=== PATIENT | male | born 1955 | race African-American/Black ===

== ENCOUNTER 2017-05-07 14:35 | Observation (INO) | payer SELFPAY ==
[2017-05-07 14:41] VITALS: BMI 23.7
[2017-05-07] MEDS ORDERED: ASPIRIN 325 MG ENTERIC COATED TABLET (FP) PO ONE (15:00)
[2017-05-07] MEDS ORDERED: ASPIRIN 325 MG TABLET ONE (15:16)
[2017-05-07 15:19] LABS: BASOPHIL 1.4 % (0-2.0); EOSINOPHIL 2.7 % (0-4.5); MCH 30.8 pg (25.7-33.7); MCHC 32.7 g/dl (32.0-35.9); MEAN PLT VOLUME 8.5 fl (7.5-11.1); NEUTROPHILS 46.8 % (42.8-82.8); PLATELET COUNT 212 K/MM3 (134-434); RDW 12.9 % (11.9-15.9); WHITE BLOOD COUNT 5.7 K/mm3 (4.0-10.0)
[2017-05-07 15:22] LABS: URINE APPEARANCE CLEAR; URINE BILIRUBIN NEGATIVE (NEGATIVE); URINE BLOOD 1+ (NEGATIVE); URINE COLOR LTYELLOW; URINE GLUCOSE (UA) NEGATIVE (NEGATIVE); URINE KETONE NEGATIVE (NEGATIVE); URINE LEUK ESTERASE NEGATIVE (NEGATIVE); URINE NITRITE NEGATIVE (NEGATIVE); URINE PROTEIN NEGATIVE (NEGATIVE); URINE UROBILINOGEN NEGATIVE mg/dL (0.2-1.0)
--- NOTE | 2017-05-07 15:30 | PDOC ---
History of Present Illness - General Chief Complaint: Chest Pain Stated Complaint: CHEST PAIN Time Seen by Provider: 05/07/17 14:46 History Source: Patient - History of Present Illness Presenting Symptoms: Chest Pain Timing/Duration: reports: constant, changing over time Chest Pain Radiation: reports: back Prior Chest Pain/Cardiac Workup: reports: No prior cardiac workup Past History - Past Medical History Allergies/Adverse Reactions: Allergies Allergy/AdvReac Type Severity Reaction Status Date / Time No Known Allergies Allergy Verified 05/07/17 14:37 Home Medications: Ambulatory Orders NK [No Known Home Medication] 05/07/17 Other medical history: DENIES. - Psycho/Social/Smoking Cessation Hx Suicidal Ideation: No Smoking History: Never smoked Have you smoked in the past 12 months: No Information on smoking cessation initiated: No Review of Systems - Review of Systems Constitutional: No: Chills, Fever Respiratory: No: Cough, Shortness of Breath Cardiac (ROS): Yes: Chest Pain. No: Lightheadedness, Palpitations, Syncope ABD/GI: No: Nausea, Vomiting *Physical Exam - Vital Signs Last Vital Signs Temp Pulse Resp BP Pulse Ox 97.7 F 58 L 16 133/71 98 05/07/17 14:37 05/07/17 14:37 05/07/17 14:37 05/07/17 14:37 05/07/17 14:37 - Physical Exam General Appearance: Yes: Appropriately Dressed. No: Apparent Distress HEENT: positive: Normal Voice Neck: positive: Supple Respiratory/Chest: positive: Lungs Clear, Normal Breath Sounds. negative: Respiratory Distress Cardiovascular: positive: Regular Rate, S1, S2 Gastrointestinal/Abdominal: positive: Soft. negative: Tender Extremity: positive: Normal Inspection Integumentary: positive: Dry, Warm Neurologic: positive: Fully Oriented, Alert, Normal Mood/Affect Heart Score/ECG Review - ECG Intrepretation Comment:: 05/07/17 16:03 Twelve-lead EKG was performed and reviewed by me. There is normal sinus rhythm with a normal rate. The axis is normal. The intervals are normal. There are no ST or T wave abnormalities. Impression: Normal twelve-lead EKG ED Treatment Course - LABORATORY CBC & Chemistry Diagram: 05/07/17 15:07 05/07/17 15:07 - ADDITIONAL ORDERS Additional order review: Laboratory Results 05/07/17 05/07/17 15:07 14:54 Sodium 140 Potassium 4.8 Chloride 105 Carbon Dioxide 29 Anion Gap 6 L BUN 16 Creatinine 1.1 Creat Clearance w eGFR > 60 Random Glucose 123 H Calcium 8.7 Total Bilirubin 0.3 AST 39 H ALT 22 Alkaline Phosphatase 79 Creatine Kinase 276 Troponin I < 0.02 Total Protein 6.9 Albumin 3.3 L Urine Color Ltyellow Urine Appearance Clear Urine pH 5.0 Urine Protein Negative Urine Glucose (UA) Negative Urine Ketones Negative Urine Blood 1+ H Urine Nitrite Negative Urine Bilirubin Negative Urine Urobilinogen Negative Ur Leukocyte Esterase Negative Urine RBC 1 Urine WBC 1 Urine Mucus Rare 05/07/17 15:07 RBC 4.51 MCV 94.0 MCHC 32.7 RDW 12.9 MPV 8.5 Neutrophils % 46.8 Lymphocytes % 40.6 H Monocytes % 8.5 Eosinophils % 2.7 Basophils % 1.4 - RADIOLOGY Radiology Studies Ordered: Category Date Time Status CHEST X-RAY PORTABLE* [RAD] Stat Radiology 05/07/17 14:51 Completed - Medications Given in the ED: ED Medications Discontinued Medications Generic Name Dose Route Start Last Admin Trade Name Vaishnavi PRN Reason Stop Dose Admin Aspirin 325 mg 05/07/17 15:00 05/07/17 15:11 Ecotrin - PO 05/07/17 15:01 325 mg ONCE ONE Administration Medical Decision Making - Medical Decision Making 05/07/17 15:00 61 yo M, denies any pmhx but states he has not seen a doctor in many years, non- smoker, p/w chest pain. Pt c/o L sided CP radiating to left upper back this am, unable to describe pain, with no exacerbating or alleviating factors. No shortness of breath, diaphoresis, nausea, vomiting, palpitations, leg pain or swelling. No history of similar pain. No obvious risk factors for DVT or PE. See exam CP Not great story for ACS No RFs for DVT/PE Unlikely dissection -asa -ekg -cxr -labs -will m/l admit for am stress given no cardiac w/u in past 05/07/17 15:31 05/07/17 16:03 05/07/17 16:20 EKG/CXR/labs unremarkable. Will admit to tele obs for am stress as d/w hospitalist *DC/Admit/Observation/Transfer Diagnosis at time of Disposition: Chest pain Qualifiers: Chest pain type: unspecified Qualified Code(s): R07.9 - Chest pain, unspecified - Discharge Dispostion Condition at time of disposition: Fair Admit: Yes Decision to Admit order Date/Time: Decision to Admit Order Category Date Time Status Decision to Admit to Hospital Routine Admission 05/07/17 16:20 Ordered
[2017-05-07 15:41] LABS: ALBUMIN 3.3 g/dl (3.4-5.0); ANION GAP 6 (8-16); BILIRUBIN,TOTAL 0.3 mg/dL (0.2-1.0); CALCIUM 8.7 mg/dL (8.5-10.1); CO2 29 mmol/L (21-32); CREATININE 1.1 mg/dL (0.7-1.3); GLUCOSE,RANDOM 123 mg/dL (74-106); SGPT/ALT 22 U/L (12-78); TOT PROT 6.9 g/dl (6.4-8.2)
[2017-05-07 15:44] LABS: ALK PHOS 79 U/L (45-117); TROPONIN I < 0.02 ng/ml (0.00-0.05)
[2017-05-07 15:45] LABS: SGOT/AST 39 U/L (15-37)
[2017-05-07 15:46] LABS: CPK 276 IU/L (39-308)
[2017-05-07 15:58] LABS: URINE MUCUS RARE; URINE RBC 1 /hpf (0-3); URINE WBC 1 /hpf (3-5)
--- NOTE | 2017-05-07 16:02 | EKG ---
Test Reason : Blood Pressure : / mmHG Vent. Rate : 060 BPM Atrial Rate : 060 BPM P-R Int : 186 ms QRS Dur : 088 ms QT Int : 406 ms P-R-T Axes : 055 031 043 degrees QTc Int : 406 ms NORMAL SINUS RHYTHM EARLY REPOLARIZATION PATTERN NO PREVIOUS ECGS AVAILABLE CLINICAL CORRELATION IS RECOMMENDED Confirmed by LAWANDA VIDAL MD ([id number] on 05/07/2017 4:02:29 PM Referred By: Confirmed By:LAWANDA VIDAL MD
--- NOTE | 2017-05-07 17:56 | PN ---
Teaching Attending Note Name of Resident: Azam Dave ATTENDING PHYSICIAN STATEMENT I saw and evaluated the patient. I reviewed the resident's note and discussed the case with the resident. I agree with the resident's findings and plan as documented. SUBJECTIVE:61yo M c/o back pain that started suddenly at 5am. pt was already awake and it did not wake him up from sleep. states it was a sharp pain that over the next few hours radiated to the chest. he continues to have the CP but is not as severe as when the pain first started. no other assoc symptoms. no symptoms in the past. no CP or SOB on exertion. no trauma, denies lifting anything heavy. drinks a bottle of wine a week vs per day (kept changing story) , does not smoke. father of heart disease in his 70's. pt has not seen a physician since 2012 because he does not think doctors are necessary. he has no problems therefore no indication for routine check ups OBJECTIVE: Last Vital Signs Temp Pulse Resp BP Pulse Ox 98.0 F 51 L 16 136/73 99 05/07/17 16:57 05/07/17 16:57 05/07/17 16:57 05/07/17 16:57 05/07/17 16:57 General NAD, resting comfortable in bed, talking in clear sentences with no distress HEENT poor dentition CV S1 S2 RRR no murmur/rub/gallop no chest wall tenderness Lungs CTA B/L no wheezing/rales/rhonchi Abdomen soft NT/ND Extremities no pedal edema, pulse equal in all extremities ASSESSMENT AND PLAN: 61yo M with no PMH presented to the ER with back pain radiating to the chest 1. Atypical CP- concern for aortic dissection with story given. however less likely as pt is hemodynamically stable, resting comfortable and speaking without distress, no pulse variation. BP equal in both arms. low probability, will check ddimer to r/o liklihood of dissection. check ddimer as if <500 can r/ o dissection. will place on cardiac monitoring. trend cardiac enzymes q6H. only risk factor is drinking. ideally would benefit from stress test however concern that pt would follow up and take medications as instructed if requires cardiac cath and stenting. cardio consulted. 2. Continuous ETOH abuse- unclear if pt is heavy drinker as elusive on questioning. denies that ETOH is a problem. no hx of DT or withdrawals. refuses rehab. counseled on importance of drinking with moderation which is limited to 2 (8oz) glasses of wine per sitting 3. DVT ppx-EAM
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
[2017-05-07] MEDS: HEPARIN NA (PORCINE) 5,000 UNITS/ML 1ML VIAL SQ SCH (22:16)
[2017-05-07] MEDS ORDERED: HEPARIN NA (PORCINE) 5,000 UNITS/ML 1ML VIAL ONE (22:40)
[2017-05-07 23:32] LABS: TROPONIN I < 0.02 ng/ml (0.00-0.05)
[2017-05-08 00:39] LABS: INR 1.02 (0.82-1.09); PROTHROMBIN TIME (PATIENT) 11.2 SEC (9.98-11.88)
[2017-05-08 00:41] LABS: ACTIVATED PTT 31.1 SECONDS (26.9-34.4)
--- NOTE | 2017-05-08 09:14 | CON.CARD ---
Consult Consult Specialty:: cardio Referred by:: hospitalist Reason for Consultation:: back/chest pain - History of Present Illness Chief Complaint: same History of Present Illness: 61 yr old man with no medical f/u presented to ER 05/07 with severe (10/10) continuous pressure-like back pain that started around 5am on DOA. he reported to hospitalist that the pain radiates anteriorly to the left side of his chest (vice versa to ER). denies alleviating or exacerbating factors, incl not positional. reports it the worst pain he has ever had that did not go away. tells me he woke up feeling pain in center mid back yest and there was no radiation or chest involvement. says he cannot recall how long it lasted for, there was no positional component or pleuritic cp. says the pain RESOLVED eventually, then returned last night but last night was ONLY left pectoral "stiffness" pain, not radiating. at no time was there "tearing" sensation. denies assctd diaph, sob, presyncope/LH no pain at present PMH: none known (no MD f/u) + 2nd hand tobacco exposures denies etoh abuse FH: h/o [place] in father age 72 - Smoking History Smoking history: Never smoked Have you smoked in the past 12 months: No Home Medications - Allergies Allergies/Adverse Reactions: Allergies Allergy/AdvReac Type Severity Reaction Status Date / Time No Known Allergies Allergy Verified 05/07/17 14:37 - Home Medications Home Medications: Ambulatory Orders NK [No Known Home Medication] 05/07/17 Review of Systems - Review of Systems Constitutional: denies: Chills, Fever Eyes: denies: Eye Pain HENT: denies: Nasal Congestion Neck: denies: Stiffness Cardiovascular: denies: Palpitations Respiratory: denies: Orthopnea, PND Gastrointestinal: denies: Diarrhea, Rectal Bleeding Genitourinary: denies: Burning, Hematuria Musculoskeletal: denies: Muscle Pain Integumentary: denies: Rash Neurological: denies: Numbness, Seizure, Syncope Endocrine: denies: Excessive Sweating Hematology/Lymphatic: denies: Excessive Bleeding Vital Signs: Vital Signs Temperature 98.4 F 05/07/17 23:00 Pulse Rate 52 L 05/08/17 06:36 Respiratory Rate 18 05/08/17 06:36 Blood Pressure 128/75 05/08/17 06:36 O2 Sat by Pulse Oximetry (%) 99 05/08/17 06:36 Constitutional: Yes: Well Nourished, No Distress Eyes: No: Sclera Icterus HENT: No: Nasal Congestion Neck: No: Decreased ROM Respiratory: Yes: CTA Bilaterally. No: Accessory Muscle Use, Rales, Wheezes Gastrointestinal: Yes: Normal Bowel Sounds. No: Distention, Hepatomegaly, Palpable Mass, Tenderness Cardiovascular: Yes: Regular Rate and Rhythm JVD: No Carotid Bruit: No PMI: Non-Displaced Heart Sounds: Yes: S1, S2. No: Gallop Murmur: No: Systolic Murmur, Diastolic Murmur Musculoskeletal: Yes: Other (No kyphosis) Extremities: No: Cold, Cyanosis Edema: No Peripheral Pulses: 2+ Left Carotid, 2+ Right Carotid, 2+ Left Doralis Pedis, 2+ Right Dorsalis Pedis Integumentary: No: Jaundice Neurological: Yes: Alert, Oriented (x3) Psychiatric: No: Agitated - Other Data Labs, Other Data: INR, PTT INR 1.02 (0.82-1.09) 05/08/17 00:01 Troponin, BNP 05/07/17 23:00 Troponin I < 0.02 Troponin, BNP 05/07/17 23:00 Troponin I < 0.02 Laboratory Tests 05/07/17 05/07/17 05/07/17 15:07 15:07 15:33 WBC 5.7 Hgb 13.9 Plt Count 212 Sodium 140 Potassium 4.8 Carbon Dioxide 29 BUN 16 Creatinine 1.1 AST 39 H ALT 22 Creatine Kinase 276 Troponin I < 0.02 B-Natriuretic Peptide 93.79 05/07/17 23:00 WBC Hgb Plt Count Sodium Potassium Carbon Dioxide BUN Creatinine AST ALT Creatine Kinase Troponin I < 0.02 B-Natriuretic Peptide Imaging - Results Chest X-ray: Report Reviewed, Image Reviewed Assessment/Plan EKG: NSR, normal axis/intervals; no path q's; no LVH; nonspecific (0.5mm) concave ST elevations lateral leads, ? early repol normal variant (no old) CXR: clear lungs/pleura; normal mediastinum back-->chest pain: -abnl ecg as above--? normal variant; no old to compare -rpt today pending -trop x 2 negative -? duration of sx's (2 episodes on DOA)--pt cannot recall -sx's not c/w acute aorta pathology given self-limited nature. normal mediastinal shadow on CXR--no need for CT aorta -atypical sx's for unstable angina, however in absence of overt m-skel features this should be ruled out since it's not inconceivable these sx's could represent acute myocardial ischemia--rec nuclear stress test today
[2017-05-08] MEDS: HEPARIN NA (PORCINE) 5,000 UNITS/ML 1ML VIAL SQ SCH (12:00)
[2017-05-08] MEDS ORDERED: HEPARIN NA (PORCINE) 5,000 UNITS/ML 1ML VIAL ONE (12:53)
[2017-05-08 13:41] LABS: THYROID STIMULATING HORMONE 1.22 uIU/ml (0.358-3.74)
--- NOTE | 2017-05-08 14:46 | PN ---
Teaching Attending Note Name of Resident: Demond Davenport ATTENDING PHYSICIAN STATEMENT I saw and evaluated the patient. I reviewed the resident's note and discussed the case with the resident. I agree with the resident's findings and plan as documented. SUBJECTIVE:no repeated episodes. denies CP, SOB, fever, chills, N/V/C/D OBJECTIVE: Last Vital Signs Temp Pulse Resp BP Pulse Ox 98.4 F 69 16 161/89 99 05/07/17 23:00 05/08/17 14:27 05/08/17 14:27 05/08/17 14:27 05/08/17 14:27 General NAD, HEENT poor dentition CV S1 S2 RRR no murmur/rub/gallop no chest wall tenderness ASSESSMENT AND PLAN: 61yo M with no PMH presented to the ER with back pain radiating to the chest 1. Atypical CP-resolved. cardiac enzymes neg x2. echo pending. evaluated by cardio who recommending stress test. pt has long hx of non compliance and unlikely to follow up if pt is to require cardiac cath and stenting. concerned if pt will not follow up. 2. Continuous ETOH abuse- unclear if pt is heavy drinker as elusive on questioning. denies that ETOH is a problem. no hx of DT or withdrawals. refuses rehab. counseled on importance of drinking with moderation which is limited to 2 (8oz) glasses of wine per sitting 3. DVT ppx-EAM 4. d/c planning pending results of echo/NMST
[2017-05-08] MEDS ORDERED: DIPYRIDAMOLE STRESS TEST 46.6 MG in DEXTROSE 5%-WATER - 37.28 ML IVPB ONE (15:00)
[2017-05-08 17:15] VITALS: BP 143/79; PULSE 58; TEMP 97.5
--- NOTE | 2017-05-08 17:45 | EKG ---
Test Reason : Blood Pressure : / mmHG Vent. Rate : 044 BPM Atrial Rate : 044 BPM P-R Int : 192 ms QRS Dur : 096 ms QT Int : 452 ms P-R-T Axes : 061 031 041 degrees QTc Int : 386 ms MARKED SINUS BRADYCARDIA ABNORMAL ECG WHEN COMPARED WITH ECG OF 07-MAY-2017 14:44, NO SIGNIFICANT CHANGE WAS FOUND Confirmed by ANDREY DUQUE MD ([id number]) on 05/08/2017 5:44:58 PM Referred By: MARKUS SOLIS Confirmed By:ANDREY DUQUE MD
[2017-05-08] MEDS ORDERED: LISINOPRIL 5 MG TABLET (FP) PO STA (17:47)
[2017-05-08] MEDS ORDERED: ASPIRIN COATED 81 MG TABLET.EC PO STA (17:47)
[2017-05-08] MEDS ORDERED: LISINOPRIL 5 MG TABLET (FP) ONE (17:56)
[2017-05-08] MEDS ORDERED: ASPIRIN 81 MG CHEWABLE TABLETS ONE (17:56)
--- NOTE | 2017-05-08 19:39 | DS ---
Physical Exam: LABS Laboratory Results - last 24 hr Selected Entries 05/07/17 05/08/17 14:37 17:14 Temperature 97.7 F 97.5 F L Pulse Rate 58 L Pulse Rate [ 58 L Left Apical] Respiratory 16 18 Rate Blood Pressure 133/71 Blood Pressure 143/79 [Left Arm] Laboratory Tests 05/07/17 05/07/17 05/08/17 15:07 23:00 00:01 INR PTT (Actin FS) D-Dimer 255 H Random Glucose 123 H Troponin I < 0.02 < 0.02 05/08/17 00:01 INR 1.02 PTT (Actin FS) 31.1 D-Dimer Random Glucose Troponin I Cxr- negative Echo- Mild aortic root dilation and aortic sclerosis. HOSPITAL COURSE: Date of Admission:05/07/17 Date of Discharge: 05/08/17 61 yr old man with no medical f/u presented with 10/10 continuous pressue-like back pain radiating anteriorly to the left side of his chest. No alleviating or exacerbating factors. The pain had not limited his activities or movements but the pain never went away.Paitient was admitted for r/o acs. In the ED, his EKG was NSR with no changes and trops were negative x 2.Patient underwent Echo ( results above) and NMST, which showed a small inferior reversible defect from base to apex suggestive of mild ischemia. Patient did not want to wait for cardiology and decided to leave AMA. Dr. Webster explained the risk of leaving and that he has a blockage that may require stenting. He expressed understanding but that he could not stay in the hospital. She stressed importance of calling cardiology office. Patient was told that he has an increased risk of having an [place] and can lead to . Pt verbalized understanding of these risks and that he still wanted to leave AMA. Minutes to complete discharge: 30 Discharge Summary Reason For Visit: CHEST PAIN Condition: Improved - Instructions Diet, Activity, Other Instructions: You were in the hospital due to chest pain. YOU STRESS TEST WAS POSITIVE and it is VERY important that you call Dr Luevano office in the morning for further instruction as you may require cardiac catheterization. You are being started on medications. It is important that you take these medications daily as instructed. Please follow up with your primary care provider within 1 week. Information on one in the area has been provided. You should see a doctor for routine work up. If you have any chest pain, shortness of breath, or any new symptoms please return to the hospital immediately. Referrals: Siddhartha Parker MD [Staff Physician] - Jesús Luevano MD [Staff Physician] - Disposition: AGAINST MEDICAL ADVICE - Home Medications Comprehensive Discharge Medication List: Ambulatory Orders Aspirin [ASA -] 81 mg PO DAILY #30 tab.chew 05/08/17 Atorvastatin Ca [Lipitor] 20 mg PO HS #30 tablet 05/08/17 Lisinopril 5 mg PO DAILY #30 tablet 05/08/17 This patient is new to me today: Yes Date on this admission: 05/09/17 Emergency Visit: Yes ED Registration Date: 05/07/17 Care time: The patient presented to the Emergency Department on the above date and was hospitalized for further evaluation of their emergent condition. Critical Care patient: No - Discharge Referral Referred to [facility] Med P.C[facility] No Physician Referral: Siddhartha Ronquillo MD ([facility])
== END 2017-05-08 18:00 | disposition left against medical advice (07) ==
LOC: JER 14:35 → JERBED 16:20
PROVIDERS: ADMIT Internal Medicine; ATTEND Internal Medicine
PROC: 3E013GC Introduction of Other Therapeutic Substance into Subcutaneous Tissue, Percutaneous Approach (ICD-10-PCS; principal; 2017-05-07)
DX: R07.89 Other chest pain (principal); F10.10 Alcohol abuse, uncomplicated; Z79.82 Long term (current) use of aspirin
CPT/HCPCS: 36415; 71010-TC; 78452-TC; 80053; 81003; 81015; 83880; 84443; 84484; 85025; 85379; 85610; 85730; 93005; 93010; 93017; 93306-TC; 99285-25; A9502; G0378; J1644

== ENCOUNTER 2021-08-22 05:55 | Emergency (ER) | payer SELFPAY ==
[2021-08-22 06:14] VITALS: BP 148/81; PULSE 53; TEMP 97.4; BMI 21.6
[2021-08-22] MEDS ORDERED: METOCLOPRAMIDE HCL INJECTION 10 MG/2 ML VIAL IVPUSH ONE (06:15)
[2021-08-22] MEDS ORDERED: MECLIZINE HCL 25 MG TABLET (FP) PO ONE (06:15)
[2021-08-22] MEDS ORDERED: MECLIZINE HCL 25 MG TABLET (FP) ONE (06:28)
[2021-08-22] MEDS ORDERED: METOCLOPRAMIDE HCL INJECTION 10 MG/2 ML VIAL ONE (06:28)
[2021-08-22 06:44] LABS: BASO % 0.9 % (0-2.0); EOS % 2.3 % (0-4.5); HEMATOCRIT 43.4 % (35.4-49); HEMOGLOBIN 14.6 GM/dL (11.7-16.9); LYMPH % 28.6 % (8-40); MCH 32.5 pg (25.7-33.7); MCHC 33.6 g/dl (32.0-35.9); MEAN CELL VOLUME 96.7 fl (80-96); MEAN PLT VOLUME 8.7 fl (7.5-11.1); MONO % 6.2 % (3.8-10.2); PLATELET COUNT 242 10^3/uL (134-434); RBC 4.49 M/mm3 (4.00-5.60); RDW 12.5 % (11.9-15.9); WHITE BLOOD COUNT 4.9 K/mm3 (4.0-10.0)
[2021-08-22 07:01] LABS: CHLORIDE 106 mmol/L (98-107); SODIUM 139 mmol/L (136-145)
[2021-08-22 07:03] LABS: CALCIUM 8.9 mg/dL (8.5-10.1)
[2021-08-22 07:04] LABS: ALBUMIN 3.6 g/dl (3.4-5.0); ANION GAP 3 MMOL/L (8-16); BLOOD UREA NITROGEN 12.7 mg/dL (7-18); CO2 31 mmol/L (21-32); GLUCOSE,RANDOM 125 mg/dL (74-106); MAGNESIUM 2.4 mg/dL (1.8-2.4)
[2021-08-22 07:07] LABS: CREATININE 1.2 mg/dL (0.55-1.3); SGOT/AST 23 U/L (15-37); SGPT/ALT 19 U/L (13-61)
[2021-08-22 07:08] LABS: BILIRUBIN,TOTAL 0.5 mg/dL (0.2-1); TOT PROT 7.4 g/dl (6.4-8.2)
[2021-08-22 07:10] LABS: ALK PHOS 68 U/L (45-117)
== END 2021-08-22 08:24 | disposition home or self-care (01) ==
LOC: JER 05:55
PROC: 3E033NZ Introduction of Analgesics, Hypnotics, Sedatives into Peripheral Vein, Percutaneous Approach (ICD-10-PCS; principal; 2021-08-22)
DX: R42 Dizziness and giddiness (principal)
CPT/HCPCS: 36415; 80053; 83735; 84484; 85025; 93005; 93010; 99284-25

== ENCOUNTER 2022-02-24 07:38 | Emergency (ER) | payer SELFPAY ==
[2022-02-24] MEDS ORDERED: ACETAMINOPHEN 1000 MG/100 ML BAG IVPB ONE (08:37)
[2022-02-24] MEDS ORDERED: SODIUM CHLORIDE 1,000 ML IV STA ×2 (08:37→10:50)
[2022-02-24] MEDS ORDERED: FAMOTIDINE 20 MG/50 ML IVPB 20 MG/50 ML MG IVPB ONE (08:37)
[2022-02-24 08:56] VITALS: BP 128/73; PULSE 60; TEMP 97.8; BMI 23.7
[2022-02-24] MEDS ORDERED: FAMOTIDINE 10 MG/ML VIAL IVPB ONE (08:59)
[2022-02-24] MEDS ORDERED: ACETAMINOPHEN INJECTION 100 ML IVPB ONE (08:59)
[2022-02-24 09:28] LABS: EPI CELLS 2 /uL (0-25.1); HYALINE CASTS 0 /uL (0-3.1); URINE APPEARANCE CLEAR; URINE BILIRUBIN NEGATIVE (NEGATIVE); URINE COLOR ORANGE; URINE GLUCOSE (UA) NEGATIVE (NEGATIVE); URINE KETONE 1+ (NEGATIVE); URINE LEUK ESTERASE NEGATIVE (NEGATIVE); URINE NITRITE POSITIVE (NEGATIVE); URINE PROTEIN NEGATIVE (NEGATIVE); URINE RBC 6 /uL (0-23.9); URINE UROBILINOGEN 0.2 mg/dL (0.2-1.0); URINE WBC 5 /uL (0-25.8)
[2022-02-24 09:54] LABS: CALCIUM 9.1 mg/dL (8.5-10.1)
[2022-02-24 09:55] LABS: ALBUMIN 3.8 g/dl (3.4-5.0); BLOOD UREA NITROGEN 17.8 mg/dL (7-18)
[2022-02-24 09:59] LABS: TOT PROT 7.6 g/dl (6.4-8.2)
[2022-02-24 10:00] LABS: BASO % 0.6 % (0-2.0); BILIRUBIN,TOTAL 0.8 mg/dL (0.2-1); EOS % 1.9 % (0-4.5); HEMATOCRIT 42.5 % (35.4-49); HEMOGLOBIN 14.1 GM/dL (11.7-16.9); LYMPH % 31.6 % (8-40); MCH 31.3 pg (25.7-33.7); MCHC 33.2 g/dl (32.0-35.9); MEAN CELL VOLUME 94.3 fl (80-96); MEAN PLT VOLUME 9.2 fl (7.5-11.1); NEUT % 52.9 % (42.8-82.8); PLATELET COUNT 253 10^3/uL (134-434)
[2022-02-24 10:17] LABS: PLATELET ESTIMATE ADEQUATE
[2022-02-24] MEDS ORDERED: KETOROLAC TROMETHAMINE 30 MG/1 ML VIAL IVPUSH ONE (10:49)
[2022-02-24] MEDS ORDERED: KETOROLAC TROMETHAMINE 30 MG/1 ML VIAL ONE (11:00)
[2022-02-24 11:40] LABS: CHLORIDE 105 mmol/L (98-107); SODIUM 135 mmol/L (136-145)
[2022-02-24 11:43] LABS: CALCIUM 8.4 mg/dL (8.5-10.1); GLUCOSE,RANDOM 86 mg/dL (74-106)
[2022-02-24 11:44] LABS: ALBUMIN 3.7 g/dl (3.4-5.0); BLOOD UREA NITROGEN 15.8 mg/dL (7-18); CO2 26 mmol/L (21-32)
[2022-02-24 11:46] LABS: SGPT/ALT 23 U/L (13-61)
[2022-02-24 11:47] LABS: SGOT/AST 71 U/L (15-37)
[2022-02-24 11:48] LABS: BILIRUBIN,TOTAL 0.7 mg/dL (0.2-1); TOT PROT 7.4 g/dl (6.4-8.2)
[2022-02-24 11:49] LABS: ALK PHOS 61 U/L (45-117)
[2022-02-24 11:57] LABS: ANION GAP 3 MMOL/L (8-16)
[2022-02-24 13:52] LABS: BLOOD UREA NITROGEN 14.3 mg/dL (7-18); CALCIUM 8.5 mg/dL (8.5-10.1)
[2022-02-24 13:53] LABS: ALBUMIN 3.7 g/dl (3.4-5.0)
[2022-02-24 13:56] LABS: CREATININE 0.9 mg/dL (0.55-1.3)
[2022-02-24 13:57] LABS: BILIRUBIN,TOTAL 0.9 mg/dL (0.2-1); TOT PROT 6.8 g/dl (6.4-8.2)
== END 2022-02-24 14:25 | disposition home or self-care (01) ==
LOC: JER 07:38
PROC: 3E033GC Introduction of Other Therapeutic Substance into Peripheral Vein, Percutaneous Approach (ICD-10-PCS; principal; 2022-02-24)
DX: R10.30 Lower abdominal pain, unspecified (principal)
CPT/HCPCS: 36415; 74176-TC; 80053; 81003; 83605; 83690; 85025; 87086; 93005; 93010; 99285-25

== ENCOUNTER 2022-07-20 22:09 | Inpatient (IN) | payer SELFPAY ==
[2022-07-20] MEDS ORDERED: FAMOTIDINE 20 MG/50 ML IVPB 20 MG/50 ML MG IVPB ONE ×2 (22:57→23:10)
[2022-07-20] MEDS ORDERED: SODIUM CHLORIDE 500 ML IV STA (22:57)
[2022-07-20 23:37] LABS: BASO % 1.6 % (0-2.0); EOS % 0.4 % (0-4.5); HEMATOCRIT 45.1 % (35.4-49); HEMOGLOBIN 14.8 GM/dL (11.7-16.9); LYMPH % 12.6 % (8-40); MCH 31.6 pg (25.7-33.7); MCHC 32.9 g/dl (32.0-35.9); MEAN CELL VOLUME 96.2 fl (80-96); MEAN PLT VOLUME 8.5 fl (7.5-11.1); MONO % 2.8 % (3.8-10.2); NEUT % 82.6 % (42.8-82.8); PLATELET COUNT 254 10^3/uL (134-434); RBC 4.69 M/mm3 (4.00-5.60); RDW 13.1 % (11.9-15.9); WHITE BLOOD COUNT 5.8 K/mm3 (4.0-10.0)
[2022-07-20 23:56] LABS: ALBUMIN 3.7 g/dl (3.4-5.0); CALCIUM 9.2 mg/dL (8.5-10.1)
[2022-07-20 23:58] LABS: MAGNESIUM 2.3 mg/dL (1.8-2.4)
[2022-07-21] LABS: CREATININE 1.1 mg/dL (0.55-1.3)
[2022-07-21 00:02] LABS: BILIRUBIN,TOTAL 0.6 mg/dL (0.2-1); TOT PROT 7.5 g/dl (6.4-8.2)
[2022-07-21] MEDS ORDERED: ACETAMINOPHEN 1000 MG/100 ML BAG IVPB ONE (02:21)
[2022-07-21] MEDS ORDERED: ACETAMINOPHEN INJECTION 100 ML IVPB ONE ×2 (02:23→17:09)
[2022-07-21] MEDS ORDERED: DEXTROSE 5%-0.45% SALINE 1,000 ML IV SCH (02:30)
[2022-07-21] MEDS ORDERED: CEFTRIAXONE 1,000 MG in DEXTROSE 5%-WATER - 50 ML IVPB ONE (03:13)
[2022-07-21] MEDS ORDERED: PIPERACILLIN/TAZOB 4.5 GM 4.5 GM in DEXTROSE 5%-WATER 100 ML IVPB ONE (03:14)
[2022-07-21] MEDS ORDERED: PIPERACILLIN/TAZOB 4.5 GM 4.5 GM/100 ML BAG IVPB ONE (03:18)
[2022-07-21] MEDS ORDERED: ACETAMINOPHEN 1000 MG/100 ML BAG IVPB PRN ×2 (07:55→20:30)
[2022-07-21] MEDS ORDERED: morphine SULFATE 4 MG/ML VIAL IVPUSH PRN (07:55)
[2022-07-21] MEDS ORDERED: PIPERACILLIN/TAZOB 3.375 GM 3.375 GM/50 ML BAG IVPB ONE ×3 (09:52→16:28)
[2022-07-21] MEDS: PIPERACILLIN/TAZOB 3.375 GM 3.375 GM in DEXTROSE 5%-WATER - 50 ML IVPB SCH ×3 (10:00→22:42)
[2022-07-21] MEDS ORDERED: ONDANSETRON 4 MG/2 ML VIAL IVPUSH PRN ×2 (10:02→20:30)
[2022-07-21] MEDS ORDERED: MIDAZOLAM HCL 2 MG/2 ML SINGLE DOSE VIAL ONE (17:13)
[2022-07-21] MEDS ORDERED: PROPOFOL 20 ML ONE ×3 (17:13→18:52)
[2022-07-21] MEDS ORDERED: ROCURONIUM BROMIDE 50 MG/5 ML SYRINGE ONE (17:14)
[2022-07-21] MEDS ORDERED: BUPIVACAINE HCL/PF 0.5% (5MG/ML) 10 ML VIAL ONE (17:28)
[2022-07-21] MEDS ORDERED: PIPERACILLIN/TAZOB 3.375 GM 3.375 GM in DEXTROSE 5%-WATER - 50 ML IVPB SCH (18:00)
[2022-07-21] MEDS ORDERED: ceFAZolin SODIUM 1 GM VIAL IVPB ONE (18:01)
[2022-07-21] MEDS ORDERED: BUPIVACAINE HCL/PF 0.5% (5 MG/ML) 30 ML VIAL IJ ONE ×2 (18:22)
[2022-07-21] MEDS ORDERED: PROMETHAZINE HCL 25 MG/1 ML VIAL IVPB ONE (19:10)
[2022-07-21] MEDS ORDERED: PROMETHAZINE HCL 25 MG/1 ML VIAL IVPUSH PRN (19:13)
[2022-07-21] MEDS ORDERED: LACTATED RINGERS SOLUTION 1,000 ML IV SCH (19:15)
[2022-07-21 20:31] VITALS: RESP 18
[2022-07-22 00:49] VITALS: BMI 23.1
[2022-07-22] MEDS ORDERED: ENOXAPARIN NA (PORCINE) 40 MG/0.4 ML DISP.SYRIN SQ SCH ×2 (10:00)
[2022-07-22 10:48] LABS: BASO % 0.2 % (0-2.0); HEMATOCRIT 40.1 % (35.4-49); HEMOGLOBIN 13.2 GM/dL (11.7-16.9); LYMPH % 18.5 % (8-40); MCH 31.7 pg (25.7-33.7); MCHC 32.9 g/dl (32.0-35.9); MEAN CELL VOLUME 96.3 fl (80-96); MEAN PLT VOLUME 8.5 fl (7.5-11.1); MONO % 8.8 % (3.8-10.2); NEUT % 72.5 % (42.8-82.8); PLATELET COUNT 235 10^3/uL (134-434); RBC 4.17 M/mm3 (4.00-5.60); RDW 12.8 % (11.9-15.9); WHITE BLOOD COUNT 5.7 K/mm3 (4.0-10.0)
[2022-07-22 11:10] LABS: BLOOD UREA NITROGEN 11.8 mg/dL (7-18); MAGNESIUM 2.1 mg/dL (1.8-2.4)
[2022-07-22 11:14] LABS: CREATININE 1.1 mg/dL (0.55-1.3); PHOSPHOROUS 3.4 mg/dL (2.5-4.9)
[2022-07-22 13:22] VITALS: BP 136/72; PULSE 57; TEMP 98.4
== END 2022-07-22 18:20 | disposition home or self-care (01) | DRG 225 ==
LOC: JER 22:09 → JERBED 07-21 05:02 → J6S 07-21 21:45
PROVIDERS: ADMIT Internal Medicine; ATTEND Internal Medicine
PROC: 0DTJ4ZZ Resection of Appendix, Percutaneous Endoscopic Approach (ICD-10-PCS; principal; 2022-07-21 16:34)
DX: K35.80 Unspecified acute appendicitis (principal); K52.9 Noninfective gastroenteritis and colitis, unspecified; I10 Essential (primary) hypertension; E78.5 Hyperlipidemia, unspecified
CPT/HCPCS: 36415; 71045-TC-FY; 74177-TC; 80048; 80053; 80061; 83036; 83690; 83735; 84100; 84484; 85025; 86900; 88304-TC; 93005; 93010; 94760; 99285-25; C9803-CS; Q9967; U0003; U0005

== ENCOUNTER 2022-08-12 22:51 | Inpatient (IN) | payer SELFPAY ==
[2022-08-12 23:01] VITALS: BMI 16.0
[2022-08-12] MEDS ORDERED: ACETAMINOPHEN 1000 MG/100 ML BAG IVPB ONE (23:54)
[2022-08-13 00:13] LABS: BASO % 0.6 % (0-2.0); EOS % 0.3 % (0-4.5); HEMATOCRIT 42.5 % (35.4-49); HEMOGLOBIN 14.2 GM/dL (11.7-16.9); LYMPH % 13.3 % (8-40); MCH 31.8 pg (25.7-33.7); MCHC 33.4 g/dl (32.0-35.9); MEAN CELL VOLUME 95.3 fl (80-96); MEAN PLT VOLUME 8.4 fl (7.5-11.1); MONO % 5.7 % (3.8-10.2); NEUT % 80.1 % (42.8-82.8); PLATELET COUNT 255 10^3/uL (134-434); RBC 4.46 M/mm3 (4.00-5.60); RDW 12.6 % (11.9-15.9); WHITE BLOOD COUNT 5.6 K/mm3 (4.0-10.0)
[2022-08-13] MEDS ORDERED: SODIUM CHLORIDE 0.9% 500 ML INFUS.BAG IV ONE (00:29)
[2022-08-13] MEDS ORDERED: METOCLOPRAMIDE HCL INJECTION 10 MG/2 ML VIAL IVPB ONE (00:29)
[2022-08-13] MEDS ORDERED: METOCLOPRAMIDE HCL INJECTION 10 MG/2 ML VIAL ONE (00:33)
[2022-08-13 00:34] LABS: ALBUMIN 3.8 g/dl (3.4-5.0); BLOOD UREA NITROGEN 15.9 mg/dL (7-18); CALCIUM 9.4 mg/dL (8.5-10.1)
[2022-08-13 00:37] LABS: CREATININE 0.9 mg/dL (0.55-1.3)
[2022-08-13 00:38] LABS: BILIRUBIN,TOTAL 0.4 mg/dL (0.2-1); TOT PROT 7.6 g/dl (6.4-8.2)
[2022-08-13 01:45] LABS: URINE APPEARANCE CLEAR; URINE BILIRUBIN NEGATIVE (NEGATIVE); URINE COLOR YELLOW; URINE GLUCOSE (UA) NEGATIVE (NEGATIVE); URINE KETONE NEGATIVE (NEGATIVE); URINE LEUK ESTERASE NEGATIVE (NEGATIVE); URINE NITRITE NEGATIVE (NEGATIVE); URINE PROTEIN NEGATIVE (NEGATIVE)
[2022-08-13] MEDS ORDERED: MAG HYDROX/AL HYDROX/SIMETH 30 ML UNIT-DOSE CUP PO ONE (03:38)
[2022-08-13] MEDS ORDERED: FAMOTIDINE 20 MG/50 ML IVPB 20 MG/50 ML MG IVPB ONE ×3 (03:38→03:49)
[2022-08-13] MEDS ORDERED: MAG HYDROX/AL HYDROX/SIMETH 30 ML UNIT-DOSE CUP ONE ×2 (03:45→03:49)
[2022-08-13] MEDS ORDERED: KETOROLAC TROMETHAMINE 15 MG/ML VIAL IVPUSH ONE (04:02)
[2022-08-13] MEDS ORDERED: KETOROLAC TROMETHAMINE 15 MG/ML VIAL ONE (04:08)
[2022-08-13 06:44] VITALS: BP 134/69; PULSE 55; RESP 16; TEMP 98.2
[2022-08-13] MEDS ORDERED: POLYETHYLENE GLYCOL (HEALTHYLAX) 3350 17 GM PACKET PO SCH (10:00)
[2022-08-13] MEDS ORDERED: POLYETHYLENE GLYCOL (HEALTHYLAX) 3350 17 GM PACKET ONE (10:10)
[2022-08-13] MEDS ORDERED: SODIUM PHOSPHATE/NA BIPHOS 133 ML ENEMA RC ONE (10:30)
[2022-08-13] MEDS ORDERED: DEXTROSE 5%-NORMAL SALINE 1,000 ML IV SCH (11:45)
[2022-08-14] MEDS ORDERED: LISINOPRIL 5 MG TABLET PO SCH (10:00)
[2022-08-14] MEDS ORDERED: ENOXAPARIN NA (PORCINE) 40 MG/0.4 ML DISP.SYRIN SQ SCH (10:00)
== END 2022-08-13 12:54 | disposition left against medical advice (07) | DRG 247 ==
LOC: JER 22:51 → JERBED 08-13 04:01
PROVIDERS: ADMIT Internal Medicine; ATTEND Internal Medicine
DX: K56.7 Ileus, unspecified (principal); I10 Essential (primary) hypertension; E78.5 Hyperlipidemia, unspecified; K21.9 Gastro-esophageal reflux disease without esophagitis; K59.00 Constipation, unspecified; D49.0 Neoplasm of unspecified behavior of digestive system
CPT/HCPCS: 0241U-QW; 36415; 71045-TC-FY; 74177-TC; 80053; 81003; 83605; 83690; 84484; 85025; 87086; 93005; 93010; 99285-25; Q9967

== ENCOUNTER 2022-08-13 19:10 | Inpatient (IN) | payer SELFPAY ==
[2022-08-13 19:43] VITALS: BP 158/86; PULSE 60; RESP 20; TEMP 98.8; BMI 21.1
[2022-08-13] MEDS ORDERED: SODIUM PHOSPHATE/NA BIPHOS 133 ML ENEMA PR ONE (20:07)
[2022-08-13] MEDS ORDERED: ACETAMINOPHEN 1000 MG/100 ML BAG IVPB ONE (20:30)
[2022-08-13] MEDS ORDERED: ONDANSETRON 4 MG/2 ML VIAL IVPUSH ONE (20:30)
[2022-08-13] MEDS ORDERED: SODIUM CHLORIDE 0.9% 500 ML INFUS.BAG IV ONE (20:30)
[2022-08-13] MEDS ORDERED: ACETAMINOPHEN INJECTION 100 ML IVPB ONE (21:04)
[2022-08-13] MEDS ORDERED: ONDANSETRON 4 MG/2 ML VIAL ONE (21:04)
[2022-08-13 21:22] LABS: INR 1.09 (0.83-1.09); PROTHROMBIN TIME (PATIENT) 12.5 SEC (9.7-13.0)
[2022-08-13 21:23] LABS: ACTIVATED PTT 29.8 SECONDS (25.2-36.5)
[2022-08-13 22:04] LABS: ALBUMIN 3.6 g/dl (3.4-5.0); CALCIUM 8.7 mg/dL (8.5-10.1); CREATININE 0.9 mg/dL (0.55-1.3)
[2022-08-13 22:05] LABS: BILIRUBIN,TOTAL 0.6 mg/dL (0.2-1)
[2022-08-13 22:08] LABS: BASO % 0.6 % (0-2.0); EOS % 0.3 % (0-4.5); HEMOGLOBIN 13.5 GM/dL (11.7-16.9); LYMPH % 9.2 % (8-40); MCHC 33.9 g/dl (32.0-35.9); MEAN CELL VOLUME 94.3 fl (80-96); MEAN PLT VOLUME 8.3 fl (7.5-11.1); MONO % 5.9 % (3.8-10.2); PLATELET COUNT 219 10^3/uL (134-434); RBC 4.24 M/mm3 (4.00-5.60); RDW 12.5 % (11.9-15.9); WHITE BLOOD COUNT 6.1 K/mm3 (4.0-10.0)
[2022-08-14] MEDS ORDERED: DOCUSATE NA 100 MG/10 ML UNIT-DOSE CUPS PO PRN (04:50)
[2022-08-14 07:44] LABS: HEMATOCRIT 38.9 % (35.4-49); HEMOGLOBIN 12.9 GM/dL (11.7-16.9); MCH 31.2 pg (25.7-33.7); MCHC 33.1 g/dl (32.0-35.9); MEAN CELL VOLUME 94.4 fl (80-96); MEAN PLT VOLUME 8.8 fl (7.5-11.1); PLATELET COUNT 238 10^3/uL (134-434); RBC 4.12 M/mm3 (4.00-5.60); RDW 12.4 % (11.9-15.9); WHITE BLOOD COUNT 4.4 K/mm3 (4.0-10.0)
[2022-08-14 08:58] LABS: CALCIUM 8.6 mg/dL (8.5-10.1); MAGNESIUM 2.1 mg/dL (1.8-2.4)
[2022-08-14 09:00] LABS: ALBUMIN 3.2 g/dl (3.4-5.0)
[2022-08-14 09:03] LABS: CREATININE 0.7 mg/dL (0.55-1.3); TOT PROT 6.2 g/dl (6.4-8.2)
[2022-08-14 09:04] LABS: PHOSPHOROUS 3.2 mg/dL (2.5-4.9)
[2022-08-14 09:05] LABS: BILIRUBIN,TOTAL 0.7 mg/dL (0.2-1)
[2022-08-14] MEDS ORDERED: POLYETHYLENE GLYCOL (HEALTHYLAX) 3350 17 GM PACKET PO SCH (10:00)
[2022-08-14] MEDS ORDERED: ENOXAPARIN NA (PORCINE) 40 MG/0.4 ML DISP.SYRIN SQ SCH (10:00)
== END 2022-08-14 10:30 | disposition left against medical advice (07) | DRG 247 ==
LOC: JER 19:10 → JERBED 22:30
PROVIDERS: ADMIT Internal Medicine; ATTEND Nurse Practitioner Acute Care
DX: K56.609 Unspecified intestinal obstruction, unspecified as to partial versus complete obstruction (principal); K56.7 Ileus, unspecified; E78.5 Hyperlipidemia, unspecified; R11.2 Nausea with vomiting, unspecified; R10.9 Unspecified abdominal pain; K59.00 Constipation, unspecified; K37 Unspecified appendicitis; I10 Essential (primary) hypertension
CPT/HCPCS: 36415; 80053; 83690; 83735; 84100; 85025; 85027; 85610; 85730; 86850; 86870; 86900; 86901; 86902; 93005; 93010; 99285-25; C9803-CS; U0003; U0005

== ENCOUNTER 2022-12-25 13:13 | Inpatient (IN) | payer OTHER ==
[2022-12-25 15:12] LABS: BASO % 0.8 % (0-2.0); EOS % 9.1 % (0-4.5); HEMOGLOBIN 12.1 GM/dL (11.7-16.9); LYMPH % 22.3 % (8-40); MCH 29.9 pg (25.7-33.7); MCHC 32.8 g/dl (32.0-35.9); MEAN CELL VOLUME 91.2 fl (80-96); MEAN PLT VOLUME 8.9 fl (7.5-11.1); MONO % 7.7 % (3.8-10.2); NEUT % 60.1 % (42.8-82.8); PLATELET COUNT 284 10^3/uL (134-434); RBC 4.06 M/mm3 (4.00-5.60); RDW 14.7 % (11.9-15.9)
[2022-12-25 15:18] LABS: INR 1.05 (0.83-1.09); PROTHROMBIN TIME (PATIENT) 12.2 SEC (9.7-13.0)
[2022-12-25 15:21] LABS: ACTIVATED PTT 29.7 SECONDS (25.2-36.5)
[2022-12-25 15:38] LABS: CHLORIDE 106 mmol/L (98-107); SODIUM 138 mmol/L (136-145)
[2022-12-25 15:40] LABS: ALBUMIN 3.2 g/dl (3.4-5.0); BLOOD UREA NITROGEN 19.1 mg/dL (7-18); CALCIUM 8.8 mg/dL (8.5-10.1); CO2 29 mmol/L (21-32); GLUCOSE,RANDOM 101 mg/dL (74-106)
[2022-12-25 15:43] LABS: CREATININE 0.8 mg/dL (0.55-1.3); SGOT/AST 38 U/L (15-37); SGPT/ALT 20 U/L (13-61)
[2022-12-25 15:45] LABS: BILIRUBIN,TOTAL 0.4 mg/dL (0.2-1); TOT PROT 7.4 g/dl (6.4-8.2)
[2022-12-25 15:46] LABS: ALK PHOS 76 U/L (45-117)
[2022-12-25 15:49] LABS: ANION GAP 3 MMOL/L (8-16)
[2022-12-25 16:43] LABS: CREATININE 0.9 mg/dL (0.55-1.3)
[2022-12-25 17:11] LABS: BLOOD UREA NITROGEN 18.5 mg/dL (7-18); CALCIUM 8.6 mg/dL (8.5-10.1)
[2022-12-25] MEDS ORDERED: ATORVASTATIN CA 20 MG TABLET (FP) ONE (23:09)
[2022-12-25] MEDS ORDERED: HEPARIN NA (PORCINE) 5,000 UNITS/ML 1ML VIAL ONE (23:10)
[2022-12-25] MEDS: HEPARIN NA (PORCINE) 5,000 UNITS/ML 1ML VIAL SQ SCH (23:20)
[2022-12-25] MEDS: ATORVASTATIN CA 20 MG TABLET (FP) PO SCH (23:20)
[2022-12-26 07:02] VITALS: BMI 20.2
[2022-12-26] MEDS: HEPARIN NA (PORCINE) 5,000 UNITS/ML 1ML VIAL SQ SCH (09:24)
[2022-12-26] MEDS: LISINOPRIL 5 MG TABLET PO SCH ×2 (09:24→09:54)
[2022-12-26] MEDS ORDERED: POLYETHYLENE GLYCOL 3350 255 GM BTL PO ONE (10:00)
[2022-12-26] MEDS ORDERED: BISACODYL 5 MG TABLET.DR (FP) PO ONE (12:00)
[2022-12-26] MEDS ORDERED: SODIUM ZIRCONIUM CYCLOSILICATE (LOKELMA) 5 GM PACKET PO ONE (12:45)
[2022-12-26] MEDS: NEOMYCIN SO4 500 MG TABLET PO SCH ×3 (13:04→23:00)
[2022-12-26] MEDS: metroNIDAZOLE 500 MG TABLET PO SCH ×3 (13:05→22:59)
[2022-12-26 14:14] LABS: BASO % 0.7 % (0-2.0); EOS % 10.8 % (0-4.5); HEMATOCRIT 39.7 % (35.4-49); HEMOGLOBIN 12.9 GM/dL (11.7-16.9); LYMPH % 33.8 % (8-40); MCH 29.5 pg (25.7-33.7); MCHC 32.4 g/dl (32.0-35.9); MEAN PLT VOLUME 9.1 fl (7.5-11.1); MONO % 10.3 % (3.8-10.2); NEUT % 44.4 % (42.8-82.8); PLATELET COUNT 267 10^3/uL (134-434); RBC 4.37 M/mm3 (4.00-5.60); WHITE BLOOD COUNT 5.1 K/mm3 (4.0-10.0)
[2022-12-26 14:23] LABS: INR 1.04 (0.83-1.09); PROTHROMBIN TIME (PATIENT) 12.1 SEC (9.7-13.0)
[2022-12-26 14:28] LABS: CALCIUM 9.3 mg/dL (8.5-10.1)
[2022-12-26 14:29] LABS: ALBUMIN 3.4 g/dl (3.4-5.0); BLOOD UREA NITROGEN 12.1 mg/dL (7-18); MAGNESIUM 2.1 mg/dL (1.8-2.4)
[2022-12-26 14:32] LABS: CREATININE 0.9 mg/dL (0.55-1.3)
[2022-12-26 14:33] LABS: BILIRUBIN,TOTAL 0.3 mg/dL (0.2-1)
[2022-12-26 14:34] LABS: TOT PROT 7.5 g/dl (6.4-8.2)
[2022-12-26] MEDS: ATORVASTATIN CA 20 MG TABLET (FP) PO SCH (23:00)
[2022-12-27] MEDS: LACTATED RINGERS SOLUTION 1,000 ML/1,000 ML INFUS.BAG IV SCH (09:49)
[2022-12-27] MEDS ORDERED: CEFOXITIN SODIUM 2 GM in DEXTROSE 5%-WATER 100 ML IVPB ONE (10:00)
[2022-12-27] MEDS ORDERED: ACETAMINOPHEN 500 MG TABLET (FP) PO ONE (10:00)
[2022-12-27] MEDS: LISINOPRIL 5 MG TABLET PO SCH (10:17)
[2022-12-27 11:06] LABS: INR 1.13 (0.83-1.09); PROTHROMBIN TIME (PATIENT) 13.1 SEC (9.7-13.0)
[2022-12-27 11:09] LABS: BASO % 0.5 % (0-2.0); EOS % 7.2 % (0-4.5); HEMATOCRIT 38.3 % (35.4-49); HEMOGLOBIN 12.7 GM/dL (11.7-16.9); MCH 29.9 pg (25.7-33.7); MCHC 33.2 g/dl (32.0-35.9); MEAN PLT VOLUME 8.9 fl (7.5-11.1); MONO % 9.4 % (3.8-10.2); NEUT % 48.9 % (42.8-82.8); PLATELET COUNT 280 10^3/uL (134-434); RBC 4.26 M/mm3 (4.00-5.60); WHITE BLOOD COUNT 3.8 K/mm3 (4.0-10.0)
[2022-12-27] MEDS ORDERED: HEPARIN NA (PORCINE) 5,000 UNITS/ML 1ML VIAL ONE ×2 (11:09→21:34)
[2022-12-27] MEDS ORDERED: INDOCYANINE GREEN 25 MG/10 ML VIAL IVPUSH ONE ×2 (11:09→16:49)
[2022-12-27] MEDS ORDERED: BUPIVACAINE HCL/PF 0.25% (2.5MG/ML) 10 ML VIAL ONE (11:09)
[2022-12-27] MEDS ORDERED: ACETAMINOPHEN 650 MG/20.3 ML ORAL SOLUTION (CUPS) PO ONE (11:12)
[2022-12-27 11:26] LABS: ALBUMIN 3.3 g/dl (3.4-5.0); BLOOD UREA NITROGEN 9.4 mg/dL (7-18)
[2022-12-27 11:29] LABS: CALCIUM 9.1 mg/dL (8.5-10.1); CREATININE 0.9 mg/dL (0.55-1.3)
[2022-12-27 11:30] LABS: MAGNESIUM 1.9 mg/dL (1.8-2.4)
[2022-12-27 11:31] LABS: BILIRUBIN,TOTAL 0.4 mg/dL (0.2-1); TOT PROT 7.2 g/dl (6.4-8.2)
[2022-12-27] MEDS ORDERED: ROCURONIUM BROMIDE 50 MG/5 ML SYRINGE ONE ×2 (11:36→12:54)
[2022-12-27] MEDS ORDERED: MIDAZOLAM HCL 2 MG/2 ML SINGLE DOSE VIAL ONE (11:37)
[2022-12-27] MEDS ORDERED: PROPOFOL 40 ML ONE (11:37)
[2022-12-27] MEDS ORDERED: GABAPENTIN 250 MG/5 ML ORAL SOLUTION, 470 ML BOTTLE PO ONE (12:00)
[2022-12-27] MEDS ORDERED: ceFAZolin SODIUM 1 GM VIAL IVPB ONE ×2 (12:30→12:45)
[2022-12-27] MEDS ORDERED: HEPARIN NA (PORCINE) 5,000 UNITS/ML 1ML VIAL SQ ONE (12:47)
[2022-12-27] MEDS ORDERED: HYDROmorphone HCl 2 MG/ML VIAL ONE (13:19)
[2022-12-27] MEDS ORDERED: BUPIVACAINE HCL/PF 0.25% (2.5MG/ML) 10 ML VIAL IJ ONE (13:30)
[2022-12-27] MEDS ORDERED: ALBUMIN HUMAN 5% 500 ML IV SOLUTION IV ONE (15:59)
[2022-12-27] MEDS ORDERED: FUROSEMIDE 40 MG/4 ML INJECTABLE VIAL ONE (16:45)
[2022-12-27] MEDS ORDERED: KETAMINE HCL 500 MG/10 ML VIAL ONE (17:22)
[2022-12-27] MEDS ORDERED: PROPOFOL 20 ML ONE ×2 (17:29→18:27)
[2022-12-27] MEDS ORDERED: NEOSTIGMINE METHYLSULFATE 0.5 MG/1 ML - 10 ML MDV ONE ×2 (17:44→19:09)
[2022-12-27] MEDS ORDERED: CEFAZOLIN SODIUM 2 GM in DEXTROSE 5%-WATER 100 ML IVPB SCH (18:00)
[2022-12-27] MEDS ORDERED: ONDANSETRON 4 MG/2 ML VIAL IVPUSH PRN (19:34)
[2022-12-27] MEDS ORDERED: PROMETHAZINE HCL 25 MG/1 ML VIAL IVPB PRN (19:34)
[2022-12-27] MEDS ORDERED: HYDROmorphone *PCA* 10MG/50ML DISP.SYRIN PCA SCH (19:45)
[2022-12-27] MEDS ORDERED: HYDROmorphone *PCA* 10MG/50ML DISP.SYRIN ONE (19:51)
[2022-12-27 20:21] LABS: BASO % 0.1 % (0-2.0); EOS % 0.1 % (0-4.5); HEMATOCRIT 35.1 % (35.4-49); HEMOGLOBIN 11.5 GM/dL (11.7-16.9); LYMPH % 6.7 % (8-40); MCH 29.6 pg (25.7-33.7); MCHC 32.6 g/dl (32.0-35.9); MEAN CELL VOLUME 90.6 fl (80-96); MEAN PLT VOLUME 8.7 fl (7.5-11.1); MONO % 2.9 % (3.8-10.2); NEUT % 90.2 % (42.8-82.8); PLATELET COUNT 255 10^3/uL (134-434); RBC 3.87 M/mm3 (4.00-5.60); RDW 14.1 % (11.9-15.9); WHITE BLOOD COUNT 8.4 K/mm3 (4.0-10.0)
[2022-12-27 20:42] LABS: ALBUMIN 3.3 g/dl (3.4-5.0); CALCIUM 7.9 mg/dL (8.5-10.1)
[2022-12-27 20:45] LABS: CREATININE 1.1 mg/dL (0.55-1.3)
[2022-12-27 20:47] LABS: BILIRUBIN,TOTAL 0.2 mg/dL (0.2-1); TOT PROT 6.5 g/dl (6.4-8.2)
[2022-12-27] MEDS: HEPARIN NA (PORCINE) 5,000 UNITS/ML 1ML VIAL SQ SCH (21:39)
[2022-12-27] MEDS ORDERED: GABAPENTIN 400 MG CAPSULE PO SCH (22:00)
[2022-12-27] MEDS ORDERED: ONDANSETRON 4 MG/2 ML VIAL ONE (22:04)
[2022-12-27] MEDS: ATORVASTATIN CA 20 MG TABLET (FP) PO SCH (22:51)
[2022-12-28] MEDS ORDERED: IBUPROFEN 800 MG/8 ML IJ IVPB PRN
[2022-12-28] MEDS: ACETAMINOPHEN 1000 MG/100 ML BAG IVPB SCH ×3 (02:22→18:22)
[2022-12-28] MEDS: IBUPROFEN 800 MG/8 ML IJ IVPB SCH ×4 (02:35→22:19)
[2022-12-28] MEDS: CEFAZOLIN SODIUM 2 GM in DEXTROSE 5%-WATER 100 ML IVPB SCH ×2 (03:42→10:40)
[2022-12-28] MEDS: SCOPOLAMINE HYDROBROMIDE 1 PATCH PATCH.TD72 TD SCH (04:39)
[2022-12-28] MEDS: LACTATED RINGERS SOLUTION 1,000 ML IV SCH ×2 (04:40→22:22)
[2022-12-28] MEDS: HEPARIN NA (PORCINE) 5,000 UNITS/ML 1ML VIAL SQ SCH ×3 (07:03→23:18)
[2022-12-28] MEDS: GABAPENTIN 400 MG CAPSULE PO SCH ×3 (07:04→23:17)
[2022-12-28] MEDS ORDERED: oxyCODONE HCL 5 MG TABLET PO PRN (08:07)
[2022-12-28] MEDS: LACTATED RINGERS SOLUTION 1,000 ML/1,000 ML INFUS.BAG IV SCH (09:38)
[2022-12-28] MEDS: LISINOPRIL 5 MG TABLET PO SCH ×2 (09:39→09:49)
[2022-12-28 10:06] LABS: INR 1.21 (0.83-1.09)
[2022-12-28 10:23] LABS: CALCIUM 8.6 mg/dL (8.5-10.1)
[2022-12-28 10:36] LABS: HEMOGLOBIN 11.3 GM/dL (11.7-16.9); MCH 30.4 pg (25.7-33.7); MCHC 33.3 g/dl (32.0-35.9); MEAN CELL VOLUME 91.3 fl (80-96); MEAN PLT VOLUME 9.2 fl (7.5-11.1); PLATELET COUNT 259 10^3/uL (134-434); RBC 3.72 M/mm3 (4.00-5.60); RDW 14.2 % (11.9-15.9); WHITE BLOOD COUNT 6.3 K/mm3 (4.0-10.0)
[2022-12-28 11:14] LABS: ALBUMIN 3.2 g/dl (3.4-5.0); MAGNESIUM 1.6 mg/dL (1.8-2.4)
[2022-12-28 11:19] LABS: BILIRUBIN,TOTAL 0.3 mg/dL (0.2-1); TOT PROT 6.2 g/dl (6.4-8.2)
[2022-12-28] MEDS: ATORVASTATIN CA 20 MG TABLET (FP) PO SCH (23:17)
[2022-12-29] MEDS: ACETAMINOPHEN 1000 MG/100 ML BAG IVPB SCH ×2 (02:09→03:34)
[2022-12-29] MEDS: IBUPROFEN 800 MG/8 ML IJ IVPB SCH ×4 (03:56→21:22)
[2022-12-29] MEDS: GABAPENTIN 400 MG CAPSULE PO SCH ×3 (07:07→21:23)
[2022-12-29] MEDS: HEPARIN NA (PORCINE) 5,000 UNITS/ML 1ML VIAL SQ SCH ×3 (07:07→21:23)
[2022-12-29 08:33] LABS: INR 1.22 (0.83-1.09); PROTHROMBIN TIME (PATIENT) 14.1 SEC (9.7-13.0)
[2022-12-29 08:44] LABS: BASO % 0.7 % (0-2.0); EOS % 2.7 % (0-4.5); HEMATOCRIT 34.9 % (35.4-49); HEMOGLOBIN 11.7 GM/dL (11.7-16.9); LYMPH % 21.5 % (8-40); MCH 30.4 pg (25.7-33.7); MCHC 33.6 g/dl (32.0-35.9); MEAN CELL VOLUME 90.6 fl (80-96); MEAN PLT VOLUME 9.3 fl (7.5-11.1); MONO % 10.6 % (3.8-10.2); NEUT % 64.5 % (42.8-82.8); PLATELET COUNT 214 10^3/uL (134-434); RBC 3.86 M/mm3 (4.00-5.60); WHITE BLOOD COUNT 4.4 K/mm3 (4.0-10.0)
[2022-12-29 08:57] LABS: CALCIUM 8.8 mg/dL (8.5-10.1); MAGNESIUM 1.9 mg/dL (1.8-2.4)
[2022-12-29 09:00] LABS: BILIRUBIN,TOTAL 0.3 mg/dL (0.2-1); CREATININE 0.9 mg/dL (0.55-1.3); TOT PROT 6.2 g/dl (6.4-8.2)
[2022-12-29 09:06] LABS: BLOOD UREA NITROGEN 7.1 mg/dL (7-18)
[2022-12-29 15:34] VITALS: RESP 20
[2022-12-29] MEDS: ATORVASTATIN CA 20 MG TABLET (FP) PO SCH (21:23)
[2022-12-30] MEDS: IBUPROFEN 800 MG/8 ML IJ IVPB SCH ×3 (03:21→14:28)
[2022-12-30] MEDS: HEPARIN NA (PORCINE) 5,000 UNITS/ML 1ML VIAL SQ SCH ×2 (05:39→14:25)
[2022-12-30] MEDS: GABAPENTIN 400 MG CAPSULE PO SCH ×2 (05:39→14:26)
[2022-12-30 09:10] LABS: BASO % 1.2 % (0-2.0); EOS % 12.6 % (0-4.5); HEMATOCRIT 36.4 % (35.4-49); HEMOGLOBIN 12.2 GM/dL (11.7-16.9); LYMPH % 26.2 % (8-40); MCH 30.4 pg (25.7-33.7); MCHC 33.4 g/dl (32.0-35.9); MEAN CELL VOLUME 90.8 fl (80-96); MEAN PLT VOLUME 9.6 fl (7.5-11.1); MONO % 9.2 % (3.8-10.2); NEUT % 50.8 % (42.8-82.8); PLATELET COUNT 266 10^3/uL (134-434); RBC 4.01 M/mm3 (4.00-5.60); RDW 14.1 % (11.9-15.9); WHITE BLOOD COUNT 5.5 K/mm3 (4.0-10.0)
[2022-12-30 09:30] LABS: CALCIUM 9.3 mg/dL (8.5-10.1)
[2022-12-30 09:31] LABS: ALBUMIN 3.3 g/dl (3.4-5.0); BLOOD UREA NITROGEN 13.1 mg/dL (7-18)
[2022-12-30 09:34] LABS: CREATININE 0.9 mg/dL (0.55-1.3)
[2022-12-30 09:35] LABS: BILIRUBIN,TOTAL 0.3 mg/dL (0.2-1)
[2022-12-30] MEDS: SCOPOLAMINE HYDROBROMIDE 1 PATCH PATCH.TD72 TD SCH (12:31)
[2022-12-30 14:53] VITALS: BP 143/70; PULSE 68; TEMP 98.8
== END 2022-12-30 05:40 | disposition home health service (06) | DRG 221 ==
LOC: JER 13:13 → INTOOBSV 14:10 → UNDOADMOB 14:10 → JERBED 14:10 → J8W 12-26 06:43 → OBSVTOIN 12-26 09:05
PROVIDERS: ADMIT Internal Medicine; ATTEND Nurse Practitioner Acute Care
PROC: 0TP98DZ Removal of Intraluminal Device from Ureter, Via Natural or Artificial Opening Endoscopic (ICD-10-PCS; 2022-12-27)
PROC: 0T788DZ Dilation of Bilateral Ureters with Intraluminal Device, Via Natural or Artificial Opening Endoscopic (ICD-10-PCS; 2022-12-27)
PROC: 0TJB8ZZ Inspection of Bladder, Via Natural or Artificial Opening Endoscopic (ICD-10-PCS; 2022-12-27)
PROC: 0DTNFZZ Resection of Sigmoid Colon, Via Natural or Artificial Opening With Percutaneous Endoscopic Assistance (ICD-10-PCS; principal; 2022-12-27 10:45)
PROC: 8E0W4CZ Robotic Assisted Procedure of Trunk Region, Percutaneous Endoscopic Approach (ICD-10-PCS; 2022-12-27 10:45)
DX: C18.7 Malignant neoplasm of sigmoid colon (principal); I10 Essential (primary) hypertension; E78.5 Hyperlipidemia, unspecified
CPT/HCPCS: 0241U-QW; 36415; 71046-TC-FY; 80048; 80053; 83735; 84484; 85025; 85027; 85610; 85730; 86140; 86850; 86900; 86901; 87086; 88108; 88309-TC; 93005; 93010; 93306-TC; 94010; 94760; 97116-GP; 97161-GP; 99283-25; G0378; J1644

== ENCOUNTER 2024-09-04 07:19 | Emergency (ER) | payer SELFPAY ==
[2024-09-04 07:33] VITALS: RESP 18; BMI 21.2
[2024-09-04 08:31] LABS: HEMATOCRIT 50.8 % (35.4-49); HEMOGLOBIN 16.2 GM/dL (11.7-16.9); MEAN PLT VOLUME 8.2 fl (7.5-11.1); PLATELET COUNT 227 10^3/uL (134-434); RBC 5.24 M/mm3 (4.00-5.60); RDW 13.3 % (11.9-15.9); WHITE BLOOD COUNT 6.2 K/mm3 (4.0-10.0)
[2024-09-04 08:42] LABS: INR 0.97 (0.83-1.09)
[2024-09-04 08:45] LABS: ACTIVATED PTT 31.1 SECONDS (25.2-36.5)
[2024-09-04 09:18] LABS: POTASSIUM 4.6 mmol/L (3.5-5.1)
[2024-09-04 09:20] LABS: CALCIUM 9.3 mg/dL (8.5-10.1)
[2024-09-04 09:21] LABS: BLOOD UREA NITROGEN 20.5 mg/dL (7-18); MAGNESIUM 2.1 mg/dL (1.8-2.4)
[2024-09-04 09:23] LABS: CREATININE 1.2 mg/dL (0.55-1.3); PHOSPHOROUS 2.6 mg/dL (2.5-4.9)
[2024-09-04 09:24] LABS: TOT PROT 8.1 g/dl (6.4-8.2)
[2024-09-04] MEDS: LACTATED RINGERS SOLUTION 1000 ML INFUS.BAG IV ONE (09:24)
[2024-09-04 09:25] LABS: BILIRUBIN,TOTAL 0.6 mg/dL (0.2-1)
[2024-09-04] MEDS: ONDANSETRON 4 MG/2 ML VIAL IVPUSH ONE (10:10)
[2024-09-04] MEDS ORDERED: ONDANSETRON 4 MG/2 ML VIAL ONE (10:11)
[2024-09-04 10:31] LABS: ANISOCYTOSIS 0; HELMET CELLS 0; HOWELL-JOLLY BODIES 0; MACROCYTOSIS 0; OVALOCYTE 0; ROULEAU 0; SICKELED CELLS 0; TARGET CELLS 0; TEAR DROP CELLS 0; TOXIC GRANULATION 0
[2024-09-04 13:15] VITALS: BP 135/75; PULSE 78; TEMP 98.2
== END 2024-09-04 13:00 | disposition home or self-care (01) ==
LOC: JER 07:19
PROC: 3E033GC Introduction of Other Therapeutic Substance into Peripheral Vein, Percutaneous Approach (ICD-10-PCS; principal; 2024-09-04)
DX: R19.7 Diarrhea, unspecified (principal); R11.0 Nausea; Z20.822 Contact with and (suspected) exposure to COVID-19
CPT/HCPCS: 0241U-QW; 36415; 71045-TC-FY; 74177-TC; 80053; 83690; 83735; 84100; 85025; 85610; 85730; 93005; 93010; 99284-25; Q9967

== ENCOUNTER 2025-06-10 11:32 | Emergency (ER) | payer SELFPAY ==
[2025-06-10 11:44] VITALS: BMI 19.8
[2025-06-10] MEDS: SODIUM CHLORIDE 0.9% 500 ML INFUS.BAG IV ONE (13:36)
[2025-06-10 13:38] LABS: ABSOLUTE IMMATURE GRANULOCYTES 0.01 x10^3/uL (0.0-0.031); BASOPHILS # 0.03 x10^3/uL (0.01-0.08); EOSINOPHIL % 1.3 % (0.8-7.0); EOSINOPHILS # 0.06 x10^3/uL (0.04-0.54); MCHC 32.0 g/dl (32.3-36.5); MEAN CELL VOLUME 98.9 fl (79.0-92.2); MEAN PLT VOLUME 10.1 fl (9.4-12.4); MONOCYTE # 0.39 x10^3/uL (0.30-0.82); MONOCYTE % 8.4 % (5.3-12.2); RDW 11.5 % (12.2-16.6)
[2025-06-10 13:46] LABS: INR 1.02 (0.83-1.09); PROTHROMBIN TIME (PATIENT) 11.1 SEC (9.7-13.0)
[2025-06-10 13:48] LABS: ACTIVATED PTT 31.0 SECONDS (25.2-36.5)
[2025-06-10 13:50] LABS: URINE APPEARANCE CLEAR; URINE BILIRUBIN NEGATIVE (NEGATIVE); URINE COLOR YELLOW; URINE GLUCOSE (UA) NEGATIVE (NEGATIVE); URINE KETONE NEGATIVE (NEGATIVE); URINE LEUK ESTERASE NEGATIVE (NEGATIVE); URINE NITRITE NEGATIVE (NEGATIVE); URINE PROTEIN NEGATIVE (NEGATIVE); URINE UROBILINOGEN 0.2 mg/dL (0.2-1.0)
[2025-06-10 14:07] LABS: GLUCOSE,RANDOM 106.0 mg/dL (74-106); TOT PROT 7.5 g/dl (6.4-8.2)
[2025-06-10 14:08] LABS: CO2 29.0 mmol/L (21-32)
[2025-06-10 14:10] LABS: ALK PHOS 71.0 U/L (40-150)
[2025-06-10 14:13] LABS: CREATININE 0.97 mg/dL (0.55-1.3); SGOT/AST 34.0 U/L (5-34); SGPT/ALT 18.0 U/L (0-55)
[2025-06-10 14:33] LABS: HCV DIAGNOSTIC IN-HOUSE W/RFLX NON-REACTIVE (NONREACTIVE)
[2025-06-10 14:34] LABS: HIV INTERPRETATION NEGATIVE (NEGATIVE)
[2025-06-10 16:03] VITALS: BP 146/74; PULSE 52; RESP 20; TEMP 98.2
== END 2025-06-10 17:32 | disposition home or self-care (01) ==
LOC: JER 11:32
DX: R42 Dizziness and giddiness (principal); R55 Syncope and collapse; R35.0 Frequency of micturition; R26.89 Other abnormalities of gait and mobility
CPT/HCPCS: 36415; 70450-TC; 71046-TC-FY; 80053; 81003; 83690; 83735; 84100; 84484; 85025; 85610; 85730; 86803; 86850; 86900; 86901; 87086; 87389; 93005; 93010; 99285-25